=== PATIENT | female | born 1990 | race Hispanic/Latino ===

== ENCOUNTER 2017-07-08 20:40 | Emergency (ER) | payer MEDICAID, OTHER ==
[2017-07-08 21:08] LABS: #Basophils 0.1 thou/uL (0.0-0.2); #Eosinphils 0.1 thou/uL (0.0-0.7); #Lymphocytes 2.2 thou/uL (1.20-3.40); #Monocytes 0.5 thou/uL (0.11-0.59); #Neutrophils 3.9 thou/uL (1.40-6.50); %Basophils 1.4 % (0.0-1.0); %Eosinophils 1.7 % (0.0-10.0); %Lymphocytes 31.7 % (21.0-51.0); %Monocytes 7.9 % (0.0-10.0); Hematocrit 39.6 % (36.0-47.0); Mean Platelet Volume 8.8 fL (7.4-10.4); Red Blood Cell (RBC) Count 4.18 mill/uL (4.20-5.40); White Blood Cell (WBC) Count 6.9 thou/uL (4.8-10.8)
[2017-07-08 21:25] LABS: ALT (SGPT) 24 U/L (8-55); AST (SGOT) 22 U/L (5-34); Alkaline Phosphatase 74 U/L (40-150); Anion Gap 17 mmol/L (10-20); BUN (Urea Nitrogen) 13 mg/dL (7.0-18.7); Bilirubin, Total 0.2 mg/dL (0.2-1.2); Calc. Creatinine Clearance 0 mL/min (70-130); Calcium 9.6 mg/dL (7.8-10.44); Carbon Dioxide 22 mmol/L (22-29); Chloride 103 mmol/L (98-107); Estimated GFR-MDRD 86; Globulin 3.2 g/dL (2.4-3.5); Protein, Total 7.7 g/dL (6.0-8.3)
[2017-07-08] MEDS ORDERED: Lidocaine 1% w/Epinephrine 1:200K 30 ML VIAL ONE (22:31)
--- NOTE | 2017-07-08 22:44 | CT ---
CT HEAD NONCONTRAST 07/08/17 HISTORY: Seizure. COMPARISON: 08/15/14. FINDINGS: There is no evidence of acute intracranial hemorrhage or infarct. The ventricles appear normal in siz e, shape and position. There is no mass effect or shift of midline structures. The visualized paranas al sinuses remain well aerated. IMPRESSION: No acute intracranial abnormalities are demonstrated on noncontrast CT head. POS: [facility]
--- NOTE | 2017-07-08 22:45 | CT ---
CT FACE NONCONTRAST 07/08/17 HISTORY: Seizure. Facial injury. FINDINGS: The globes, mandible, and zygomatic arches are intact. The visualized paranasal sinuses remain well a erated. No displaced fractures are apparent. IMPRESSION: No acute osseous abnormalities are demonstrated. POS: [facility]
[2017-07-09] MEDS ORDERED: Bacitracin Zinc 1 Packet ONE (00:05)
[2017-07-09 00:17] LABS: Bilirubin Negative (Negative); Blood, Urine Negative (Negative); Glucose, Urine (Dipstick) Negative (Negative); Ketone, Urine Negative (Negative); Nitrite Negative (Negative); Protein, Urine (Dipstick) Negative (Neg-Trace)
== END 2017-07-09 00:45 | disposition home or self-care (01) ==
LOC: ERS 20:40
DX: S01.111A Laceration without foreign body of right eyelid and periocular area, initial encounter (principal); G40.909 Epilepsy, unspecified, not intractable, without status epilepticus; F41.9 Anxiety disorder, unspecified; F32.9 Major depressive disorder, single episode, unspecified; F90.9 Attention-deficit hyperactivity disorder, unspecified type; Z79.899 Other long term (current) drug therapy; W22.03XA Walked into furniture, initial encounter
CPT/HCPCS: 12011; 70450; 70486; 80053; 81003; 84146; 84703; 85025; 99406

== ENCOUNTER 2018-10-11 23:17 | Day surgery (SDC) | payer OTHER ==
[2018-10-12 00:04] VITALS: BMI 30.2
--- NOTE | 2018-10-12 00:19 | PDOC.LDHP ---
Labor and Delivery H&P Chief complaint: other (Here for BP check, twins) HPI: Patient of Dr Gonsalez Here for "high BP at [facility]", known twins 28 yo with nown twins, brought from [facility] for "BP check". States BP was high at [facility] but no VEGA, no visual changes, no RUQ pain, no CTXs, no LOF. Good FM X 2. States some vag pressure Review of Systems: complete ROS performed and as per HPI Current gestational age (weeks): 27 (5 days) Dating criteria: last menstrual period Grav: 4 Para: 3 Current complications: other (known twins) Abnormal US findings: No Current medications: pre- vitamins Previous surgical history: none Allergies/Adverse Reactions: Allergies Allergy/AdvReac Type Severity Reaction Status Date / Time No Known Allergies Allergy Verified 03/28/13 00:24 - Physical Exam Vital signs reviewed and normal: yes (120/80s here with one BP 136/94) General: NAD Heart: RRR FHT: category 1 (X2 (reactive for age)) [place] contractions every: none - Assessment Known twins here for BP check.Patient arrived from [facility]. EGA is 27 weeks - Plan Plan: observation in L&D (No evidence PIH at this time. We will keep with BP checks. I have ordered transvag cervical length check for twins and vag pressure. No evidence actice PTL at this time.)
--- NOTE | 2018-10-12 01:08 | PDOC.EVN ---
Event Note - Event Note Event Note: BPs have been 120s/80s while in L&D I was present for the cervical sono: length 3.98cm with no funneling noted OK for outpatient F/U FHTs X 2 wnl
--- NOTE | 2018-10-12 07:26 | ULT ---
LIMITED OBSTETRICAL ULTRASOUND FOR CERVICAL LENGTH: Comparison: None. FINDINGS: There is cervical length measurement of 3.98 cm. The fetus is vertex in location. IMPRESSION: Cervical length 3.98 cm. POS: [facility]
== END 2018-10-12 01:15 ==
LOC: L&D/OP 23:17
PROVIDERS: ATTEND Obstetrics & Gynecology
DX: O99.89 Other specified diseases and conditions complicating pregnancy, childbirth and the puerperium (principal); R03.0 Elevated blood-pressure reading, without diagnosis of hypertension; O30.002 Twin pregnancy, unspecified number of placenta and unspecified number of amniotic sacs, second trimester; Z3A.27 27 weeks gestation of pregnancy; Z79.899 Other long term (current) drug therapy
CPT/HCPCS: 76815; 99282

== ENCOUNTER 2018-11-10 16:57 | Day surgery (SDC) | payer OTHER ==
[2018-11-10 17:38] VITALS: BP 142/85; TEMP 98.5; BMI 31.4
--- NOTE | 2018-11-10 18:46 | PDOC.FPROB ---
FMR OB H&P: HPI - History of Present Illness Chief Complaint: Pelvic cramping/pressure Indentification: 28 year old at 31.6 wks History of Present Illness: 28 year old at 31.6 wks with twin gestation presents with a two day history of pelvic cramping/pressure. She states it is intermittent and is improved with tylenol. Patient was seen by Dr. Gonsalez yesterday in clinic. He did a cervical check at that time and she was reportedly 1.5 cm dilated. Patient reports that today she started to have clear discharge. She denies vaginal bleeding. Primary Care Physician: Dr. Gonsalez FMR OB H&P: Current - Care : 4 Para: 2103 Gestational age: 31.6 wks Due date: 01/06/2019 FMR OB H&P: History - Past Medical History PMH: H/O seizure disorder after of daughter. Patient was reportedly on medication prior to but has not been on medication during . She has not had any seizures. - OB History OB History: x3 PTD d/t IOL for oligohydramnios at 36 wks - Surgical History Sx History: Denies - Social History Social History: Denies alcohol, tobacco, or drug use FMR OB H&P: Medications - Current Home Medications: Medication Instructions Recorded Confirmed Type Vitamin 1 tab PO DAILY 03/28/13 11/10/18 History Allergies/Adverse Reactions: Allergies Allergy/AdvReac Type Severity Reaction Status Date / Time No Known Allergies Allergy Verified 03/28/13 00:24 FMR OB H&P: ROS - Review of Systems General: denies: fever/chills, weight/appetite/sleep changes Eyes: denies: vision changes, double vision, scotomas ENT: denies: nasal congestion, rhinorrhea, sore throat Cardiovascular: denies: chest pain, palpitation, edema Gastrointestinal: reports: cramping. denies: vomiting, diarrhea Genitourinary (Female): reports: polyuria, vaginal discharge, vaginal pressure. denies: dysuria, vaginal bleeding, contractions Musculoskeletal: denies: pain, stiffness Neurologic: denies: numbness, syncope, seizures, weakness Integumentary: denies: itching, rash, lesions Hematologic/Lymphatic: denies: prolonged or excessive bleeding Psychological: denies: depression, anxiety FMR OB H&P: Vital Signs - Maternal Vital signs: Vital Signs - First Documented Temp Pulse Resp BP Pulse Ox 98.5 F 110 H 20 142/85 H 98 11/10/18 17:36 11/10/18 17:36 11/10/18 17:36 11/10/18 17:36 11/10/18 17:36 - Heart Tones Baseline: 150 (A&B) Variability: moderate (A&B) Acceleration: present (A&B) Deceleration: absent Category: category 1 [place] contractions every: Irritability FMR OB H&P: Physical Exam - Physical Exam General: NAD, awake, alert and oriented HEENT: MMM, conjunctiva clear, grossly normal vision, grossly normal hearing Heart: RRR, no murmurs/rubs/gallops, pulses present, no edema General: CTAB, no respiratory distress Abdomen: soft, gravid, non-tender, bowel sound present Musculoskeletal: pulses present, FROM in all four extremities Neurological: no tremor, no focal deficit Skin: no rash, capillary refill <2 seconds Lymphatic: no unusual bruising or bleeding, no purpura Psychiatric: intact recent and remote memory, good judgement and insight, normal mood and affect - Pelvic Exam Vulva: normal hair distribution Cervix: no lesions, no blood Deviation from normal: Copious frothy thomas vaginal discharge SVE: 1./-3 Presentation: Presenting baby vertex FMR OB H&P: A/P - Problem List (1) Twin gestation in third trimester Status: Acute Code(s): O30.003 - TWIN PREG, UNSP NUM PLCNTA & AMNIO SACS, THIRD TRIMESTER (2) Vaginal discharge during Status: Acute Code(s): O26.899 - OTH RELATED CONDITIONS, UNSPECIFIED TRIMESTER; N89.8 - OTHER SPECIFIED NONINFLAMMATORY DISORDERS OF VAGINA Disposition: 28 year old at 31.6 wks with twin gestation presents with pelvic cramping/pressure 1. Twin gestation at 31.6 wks - Rule out labor - Uterine irritability with intermittent contractions on toco - FHT's for baby A&B 150's; Cat 1 strip - Sent fibronectin - UA pending - VP3, GC/CT pending - Cervical check ./-3 - Encourage PO hydration 2. Vaginal discharge - VP3, GC/CT pending 3. Elevated BP without diagnosis of HTN - 142/85 on admission, no elevated BP's since initial BP check - Patient had Pre-E workup done a few weeks ago which was normal Dispo: Pending results above. If fibronectin positive, then will get cervical length. Discussion: Date/Time: 11/10/18 0293 This H&P was discussed with Dr. Morataya who agrees with the above documentation and plan. Signature: Asmita Jacob, DO PGY-2 Addendum - Attending - Attending Attestation Date/Time: 11/12/18 1630 I personally evaluated the patient and discussed the management with Dr. Jacob I agree with the History, Examination, Assessment and Plan documented above with any addition or exceptions noted below. FFN neg, VP3 neg/neg/neg. Pt discharged home with reactive NST X2 and labor precautions.
[2018-11-10 19:06] LABS: Bilirubin Negative (Negative); Blood, Urine Large (Negative); Clarity CLOUDY (Clear); Glucose, Urine (Dipstick) Negative (Negative); Leukocyte Negative (Negative); Nitrite Negative (Negative); Protein, Urine (Dipstick) Negative (Neg-Trace); pH, Urine 7.5 (5.0-9.0)
[2018-11-10 19:08] LABS: Bacteria/HPF None Seen HPF (None Seen); RBC/HPF GREATER THAN 50-TNTC HPF (0-3); WBC/HPF 0-3 HPF (0-3)
[2018-11-10 19:09] LABS: Pathc Cast-AUWi Flag 2.99 (0-2.49)
[2018-11-10 19:22] LABS: FFN Internal QC Analyzer PASS (PASS); FFN Internal QC Cassette PASS (PASS); Fetal Fibronectin Negative (Negative)
[2018-11-10 19:34] LABS: Hyaline Casts/LPF 0-3 HYALINE CAST LPF (0-3 Hyaline)
--- NOTE | 2018-11-10 21:38 | PDOC.EVN ---
Event Note - Event Note Event Note: 11/10/2018 at 9:30 PM fibronectin negative. Uterine irritability improved. VP3 negative. GC/CT still pending. Will notify patient if positive results. Patient does not appear to be in PTL at this time. UA with blood but no evidence of infection. Advised patient to follow up with Dr. Gonsalez next week. Patient complaining of GERD prior to d/c. Advised patient to take tums and follow up with Dr. Gonsalez for further treatment if necessary. Return precautions provided to include leaking of fluid, regular and painful contractions, decreased movement. Patient states that she has follow up with Dr. Gonsalez next . Asmita Jacob, DO PGY-2
[2018-11-13 00:56] LABS: Chlamydia by PCR Not Detected (NotDetected); GC by PCR Not Detected (NotDetected)
== END 2018-11-10 21:04 | disposition home or self-care (01) ==
LOC: L&D/OP 16:57
PROVIDERS: ATTEND Obstetrics & Gynecology
DX: O26.893 Other specified pregnancy related conditions, third trimester (principal); N89.8 Other specified noninflammatory disorders of vagina; R03.0 Elevated blood-pressure reading, without diagnosis of hypertension; Z3A.31 31 weeks gestation of pregnancy
CPT/HCPCS: 51701; 81001; 82731; 87480; 87491; 87510; 87591; 87660; 99284; A4353

== ENCOUNTER 2018-11-18 17:07 | Inpatient (IN) | payer OTHER ==
--- NOTE | 2018-11-18 17:35 | PDOC.EVN ---
Event Note - Event Note Event Note: HPI: This is a 28 yo at 33.0 wks with twin gestation comes in for low back pain. She states the pain started this morning. Can't really describe it. STates she is not sure what cxns feel like bc she was induced. States she just wanted to be sure she is not in labor. No burning or blood with urination. Nothing specifc makes pain better or worse. VP3, FFN, GC/CT negative 11/10 She affirms movement, denies cxns, ROM, bleeding/discharge. Denies VEGA, visual changes, SOB. States she has had some swelling of the legs. History: OB hx: x3, induce at 36 wks for oligo PMH: hx of seizure disorder after daughter. Reports being on anti-epileptic medication before but not during. Denies recent seizures. PSH: neg Meds: PNV Soc Hx: denies smoking, alcohol, drugs REVIEW OF SYSTEMS: Gen: no fever, chills, or sweats Neuro: no numbness/tingling, no weakness, denies headache Eyes: no visual changes ENT: no hearing changes, no sore throat, no runny nose Resp: no cough, no SOB, no wheeze Card: denies chest pain, no palpitations GI: no N/V/D, no abdominal pain : no dysuria, no hematuria MSK: see hpi Heme: no easy bruising/bleeding Skin: no rash, no erythema PHYSICAL EXAMINATION: General: NAD, alert and oriented x3 HEENT: PERRLA, EOMI, normal sclera, oropharynx without erythema or exudate Neck: Supple. Full ROM. Heart/Cardiovascular System: RRR, Cap refill < 3 seconds, no rub, no murmur Lungs/Respiratory System: clear to auscultation bilaterally. No increased work of breathing. Room air. Abdomen/Gastro-Intestinal System: no abdominal tenderness, normal bowel sounds, Gravid Extremeties: Warm extremities. No cyanosis or edema. Neuro: No gross deficits appreciated. CN 2-12 grossly intact Psychiatry: Awake, Alert and cooperative with exam Skin/ Integumentory: No lesions, rashes, or ulcers Musculoskeletal: Full ROM A/P: This is a 28 yo at 33.0 wks # Labor r/o - had neg FFN 11/10 - will monitor and give PO fluids - vertex/vertex on last US, has appt with Dr. Gonsalez 11/20, missed last appt Addendum - Attending - Attending Attestation Date/Time: 11/18/182024 I personally evaluated the patient and discussed the management with Dr. Hackett. 33 week twins with UCs q 3 mins and SVE of 2/50/ vtx A. Will give steroids for FLM and begin Procardia. Dr. Gonsalez has been notified. I agree with the History, Examination, Assessment and Plan documented above.
[2018-11-18] MEDS ORDERED: Acetaminophen 325 MG TAB PO SCH (18:15)
[2018-11-18] MEDS ORDERED: Promethazine HCl 25 MG/ML VIAL IM PRN (18:37)
[2018-11-18] MEDS ORDERED: Lidocaine 1% (PF) 30 ML VIAL SC PRN (18:37)
[2018-11-18] MEDS ORDERED: NS / Oxytocin 40 units/1000ml 1,000 ML IV PRN (18:37)
[2018-11-18] MEDS ORDERED: Acetaminophen 500 MG TAB PO PRN (18:37)
[2018-11-18] MEDS ORDERED: Ondansetron PF 4 MG/2 ML Vial IVP PRN (18:37)
[2018-11-18 18:40] VITALS: BMI 31.4
[2018-11-18] MEDS ORDERED: Betamet Acet/Betamet Na Ph 30 MG/5 ML VIAL ONE (18:40)
[2018-11-18] MEDS ORDERED: NIFEdipine 10 MG CAP ONE (18:43)
[2018-11-18] MEDS ORDERED: Penicillin G Potassium 5 MILL.UNITS in Sodium Chloride 0.9% 100 ML IVPB SCH (18:45)
[2018-11-18] MEDS ORDERED: Betamet Acet/Betamet Na Ph 30 MG/5 ML VIAL IM SCH (18:45)
[2018-11-18 20:57] LABS: Clarity CLEAR (Clear)
[2018-11-18 20:58] LABS: Bilirubin Negative (Negative); Blood, Urine Negative (Negative); Glucose, Urine (Dipstick) Negative (Negative); Leukocyte Negative (Negative); Nitrite Negative (Negative); Protein, Urine (Dipstick) Negative (Neg-Trace); Specific Gravity, Urine 1.003 (1.002-1.036); Urobilinogen 0.2 mg/dL (0.2-1.0)
[2018-11-18 20:59] LABS: Bacteria/HPF None Seen HPF (None Seen); Hyaline Casts/LPF 0-3 HYALINE CAST LPF (0-3 Hyaline); Pathc Cast-AUWi Flag 0.13 (0-2.49); Squamous Epithelial 0-3 HPF (0-3); WBC/HPF 0-3 HPF (0-3)
[2018-11-18 21:01] LABS: Urine Culture Reflex No No
--- NOTE | 2018-11-18 22:00 | ULT ---
FOB ultrasound CLINICAL HISTORY: Evaluation of weight and presentation, twin gestation. FINDINGS: Live intrauterine twin gestation is demonstrated. motion is noted by the weigher bulker. Fetus A and demonstrates movement during the exam and is in a vertex lie. cardiac activity of f etus A is 143 bpm. Average gestational age by ultrasound is 34 weeks and estimated weight is 2212 g. JULIUS is measured at 12.7 cm. cardiac activity of fetus B is documented at 147 bpm, and fetus B is in a vertex lie. Average g estational age by ultrasound is 33 weeks and estimated weight is 2129 g. No evidence of placenta previa is visualized. IMPRESSION: Live intrauterine twin gestation, as above. As necessary, continued imaging follow-up may be obtained. Transcribed Date/Time: 11/18/2018 10:21 PM
[2018-11-18 22:07] LABS: Mean Corpuscular HGB CONC 32.9 g/dL (32.0-36.0); Mean Corpuscular Hemoglobin 28.2 pg (27.0-31.0); Mean Corpuscular Volume 85.9 fL (78.0-98.0); Mean Platelet Volume 9.7 fL (7.4-10.4); Platelet Count 194 thou/uL (130-400); White Blood Cell (WBC) Count 8.9 thou/uL (4.8-10.8)
[2018-11-18 22:56] LABS: Syphilis Antibody Nonreactive (Nonreactive); Syphilis Antibody Index 0.03 S/CO (<1.00 Non-Reactive)
[2018-11-19 00:40] LABS: Hep B Surf Ag Non-Reactive S/CO (NonReactive)
[2018-11-19] MEDS: NIFEdipine 10 MG CAP PO SCH ×4 (01:20→20:01)
[2018-11-19] MEDS: Penicillin G 2.5 MILL.units 2.5 MILL.UNITS in Premix Bag 1 BAG IVPB SCH ×4 (01:30→13:51)
[2018-11-19] MEDS ORDERED: Calcium Carbonate 500 MG ChewTAB PO SCH (10:15)
[2018-11-20] MEDS: NIFEdipine 10 MG CAP PO SCH ×2 (02:02→10:37)
--- NOTE | 2018-11-20 13:11 | PDOC.EVN ---
Event Note - Event Note Event Note: HPI 28 yo at 33.1 wks with monochorionic diamniotic twin gestation admitted for labor and betamethazone protocol. on previous admission, VP3, FFN, GC/CT negative 11/10 History: OB hx: x3, induce at 36 wks for oligo PMH: hx of seizure disorder after daughter. Reports being on anti-epileptic medication before but not during. Denies recent seizures. PSH: neg Meds: PNV Soc Hx: denies smoking, alcohol, drugs Allergies: NKDA Meds: PNVs REVIEW OF SYSTEMS: Gen: no fever, chills, or sweats Neuro: no numbness/tingling, no weakness, denies headache Eyes: no visual changes ENT: no hearing changes, no sore throat, no runny nose Resp: no cough, no SOB, no wheeze Card: denies chest pain, no palpitations GI: no N/V/D, no abdominal pain : no dysuria, no hematuria MSK: no issues noted Heme: no easy bruising/bleeding Skin: no rash, no erythema PHYSICAL EXAMINATION: General: NAD, alert and oriented x3 HEENT: PERRLA, EOMI, normal sclera, oropharynx without erythema or exudate Neck: Supple. Full ROM. Heart/Cardiovascular System: RRR, Cap refill < 3 seconds, no rub, no murmur Lungs/Respiratory System: clear to auscultation bilaterally. No increased work of breathing. Room air. Abdomen/Gastro-Intestinal System: no abdominal tenderness, normal bowel sounds, Gravid Pelvic Exam: NL external genitalia, engaged head, Cervix is 1cm/50%/-2, posterior, firm Extremeties: Warm extremities. No cyanosis or edema. Neuro: No gross deficits appreciated. CN 2-12 grossly intact Psychiatry: Awake, Alert and cooperative with exam Skin/ Integumentory: No lesions, rashes, or ulcers Musculoskeletal: Full ROM A/P: Assessment: 1. 28 yo at 33.0 wks 2. [place]/Di Twins 3. Labor/Contractions and admitted last night by Laborist team for labor and BMZ steroid course. 4. GBS prophylaxes was begun. 5. Vertex/Vertex Ultrasound Plan: 1. Continue Modified bedrest 2. Continue BMZ course 3. Possible DC to home tomorrow if PTL is stable and cervix has not changed
--- NOTE | 2018-11-20 13:14 | PDOC.EVN ---
Event Note - Event Note Event Note: HPI 28 yo at 33.2 wks with monochorionic diamniotic twin gestation admitted for labor and betamethazone protocol. on previous admission, VP3, FFN, GC/CT negative 11/10 REVIEW OF SYSTEMS: Gen: no fever, chills, or sweats Neuro: no numbness/tingling, no weakness, denies headache Eyes: no visual changes ENT: no hearing changes, no sore throat, no runny nose Resp: no cough, no SOB, no wheeze Card: denies chest pain, no palpitations GI: no N/V/D, no abdominal pain : no dysuria, no hematuria MSK: no issues noted Heme: no easy bruising/bleeding Skin: no rash, no erythema PHYSICAL EXAMINATION: General: NAD, alert and oriented x3 HEENT: PERRLA, EOMI, normal sclera, oropharynx without erythema or exudate Neck: Supple. Full ROM. Heart/Cardiovascular System: RRR, Cap refill < 3 seconds, no rub, no murmur Lungs/Respiratory System: clear to auscultation bilaterally. No increased work of breathing. Room air. Abdomen/Gastro-Intestinal System: no abdominal tenderness, normal bowel sounds, Gravid Pelvic Exam: NL external genitalia, engaged head, Cervix is 1cm/50%/-2, posterior, firm Extremeties: Warm extremities. No cyanosis or edema. Neuro: No gross deficits appreciated. CN 2-12 grossly intact Psychiatry: Awake, Alert and cooperative with exam Skin/ Integumentory: No lesions, rashes, or ulcers Musculoskeletal: Full ROM A/P: Assessment: 1. 28 yo at 33.2 wks 2. [place]/Di Twins 3. Labor/Contractions and admitted by Laborist team for labor and BMZ steroid course. 4. GBS prophylaxes now discontinued 5. Vertex/Vertex Ultrasound 6. Stable cervical exam and arrested labor Plan: 1. DC to home 2. clinic F/U this week 3. labor precautions
== END 2018-11-20 14:25 | disposition home health service (06) | DRG 833 ==
LOC: L&D/OP 17:07 → L&D 20:57
PROVIDERS: ADMIT Obstetrics & Gynecology; ATTEND Obstetrics & Gynecology
DX: O30.003 Twin pregnancy, unspecified number of placenta and unspecified number of amniotic sacs, third trimester (principal); Z3A.33 33 weeks gestation of pregnancy
CPT/HCPCS: 36415; 76810; 81001; 85027; 86780; 86850; 86870; 86900; 86901; 87077; 87081; 87340; 99285; J0702; J2540; J7050

== ENCOUNTER 2018-11-23 17:48 | Inpatient (IN) | payer OTHER ==
[2018-11-23 18:18] VITALS: BMI 32.0
[2018-11-23 18:46] LABS: #Eosinphils 0.1 thou/uL (0.0-0.7); #Lymphocytes 1.4 thou/uL (1.20-3.40); #Monocytes 0.7 thou/uL (0.11-0.59); #Neutrophils 5.9 thou/uL (1.40-6.50); %Basophils 0.4 % (0.0-1.0); %Eosinophils 1.4 % (0.0-10.0); %Lymphocytes 17.5 % (21.0-51.0); %Monocytes 8.9 % (0.0-10.0); %Neutrophils 71.8 % (42.0-75.0); Hemoglobin 9.9 g/dL (12.0-16.0); Mean Corpuscular HGB CONC 33.2 g/dL (32.0-36.0); Mean Corpuscular Hemoglobin 27.6 pg (27.0-31.0); Mean Corpuscular Volume 83.1 fL (78.0-98.0); Red Blood Cell (RBC) Count 3.58 mill/uL (4.20-5.40); White Blood Cell (WBC) Count 8.3 thou/uL (4.8-10.8)
[2018-11-23 19:03] LABS: Amphetamine Not Detected (NotDetected); Barbiturates Screen Not Detected (NotDetected); Benzodiazepine Screen Not Detected (NotDetected); Cocaine Metabolite Screen Not Detected (NotDetected); Medtox Reader # READER 1; Methadone Not Detected (NotDetected); Methamphetamine Not Detected (NotDetected); Opiate Screen Not Detected (NotDetected); Oxycodone Screen Not Detected (NotDetected); Phencyclidine (PCP) Not Detected (NotDetected); THC/Cannabinoid Screen Not Detected (NotDetected); Tricyclic Screen Not Detected (NotDetected)
[2018-11-23 19:04] LABS: ALT (SGPT) 10 U/L (8-55); AST (SGOT) 18 U/L (5-34); Albumin 3.5 g/dL (3.5-5.0); Alkaline Phosphatase 148 U/L (40-150); Anion Gap 16 mmol/L (10-20); Anisocytosis SLIGHT = 6-15 cells (100X) (0-5/hpf); BUN (Urea Nitrogen) 6 mg/dL (7.0-18.7); Bilirubin, Total 0.4 mg/dL (0.2-1.2); Calc. Creatinine Clearance 157 mL/min (70-130); Carbon Dioxide 22 mmol/L (22-29); Chloride 103 mmol/L (98-107); Estimated GFR-MDRD Greater than 90; Globulin 3.1 g/dL (2.4-3.5); Glucose 100 mg/dL (70-105); Large Platelets SLIGHT; MDiff Complete? YES; Mean Platelet Volume 9.6 fL (7.4-10.4); Medtox Control Line Valid? VALID (VALID); Platelet Count 179 thou/uL (130-400); Platelet Morphology Comment Appears Adequate; Poikilocytosis SLIGHT = 6-15 cells (100X) (0-5/hpf); Potassium 3.6 mmol/L (3.5-5.1); Protein, Total 6.6 g/dL (6.0-8.3); Sodium 137 mmol/L (136-145)
[2018-11-23 19:38] LABS: Creatinine, Urine 32.13 mg/dL (47-110); Protein, Urine Random Quant Less than 10 mg/dL (1-14)
[2018-11-23] MEDS ORDERED: Butorphanol Tartrate 1 MG/ML VIAL SLOW IVP PRN (19:53)
[2018-11-23] MEDS ORDERED: Ondansetron PF 4 MG/2 ML Vial IVP PRN (19:53)
[2018-11-23] MEDS ORDERED: Acetaminophen 500 MG TAB PO PRN (19:53)
[2018-11-23] MEDS ORDERED: Promethazine HCl 25 MG/ML VIAL IM PRN (19:53)
--- NOTE | 2018-11-23 19:59 | PDOC.LDHP ---
Labor and Delivery H&P Chief complaint: other (BP check) HPI: 28 y/o at 33w5d, patient of Dr. Gonsalez, sent from clinic for elevated BP in clinic. Denies any PIH sx. Having continued ctx, denies vb, LOF, or decreased FM. Was previously admitted last weekend for PTL. Received celestone x 2. ROS neg for HEENT, cv, pulm, gi, gu, neuro, psych, skin, musculoskeletal or constitutional symptoms other than mentioned above. OB History Details: 3 prior term SVDs Current complications: mono/di twins Past Medical History: None Current medications: pre-margarita vitamins Previous surgical history: none Allergies/Adverse Reactions: Allergies Allergy/AdvReac Type Severity Reaction Status Date / Time No Known Allergies Allergy Verified 11/23/18 18:20 Social history: none, other (Incarcerated this ) - Physical Exam Vital signs reviewed and normal: yes General: NAD, resting Lungs: nonlabored breathing Abdomen: gravid Extremeties: no edema FHT: category 1 (x2) [place] contractions every: q8 mins - Vaginal Exam cm dilated: 2 Effacement: 75% Station: -2 - OB Labs Urine drug screen: negative - Assessment 28 y/o at 33w5d with mono/di twins here for elevated BPs. All normal BPs with single severe range while here in triage. Labs wnl. status reassuring with reactive NST. SVE unchanged from office but having ctx. - Plan Plan: observation in L&D -: Discussed with Dr. Gonsalez. Obs for serial BPs. Continue to monitor while edwina. Dr. Gonsalez will assume care at this time.
[2018-11-24] MEDS ORDERED: Zolpidem Tartrate 5 MG TAB PO PRN (01:05)
[2018-11-24] MEDS: Lactated Ringer's 1,000 ML IV SCH ×2 (01:33→05:47)
[2018-11-24 03:10] VITALS: BP 135/78
[2018-11-24] MEDS ORDERED: Promethazine HCl 25 MG/ML VIAL IM PRN (04:37)
[2018-11-24] MEDS ORDERED: Lactated Ringer's 1,000 ML IV SCH (04:37)
[2018-11-24] MEDS ORDERED: Ondansetron PF 4 MG/2 ML Vial IVP PRN (04:37)
[2018-11-24] MEDS ORDERED: Calcium Gluc 4.6 MEQ/10 ML (100 MG/ML) IV PRN (04:39)
[2018-11-24] MEDS ORDERED: Magnesium Sulfate 20 gm/500 ml 20 GM/500 ML BAG IVPB PRN (04:39)
[2018-11-24] MEDS ORDERED: Magnesium Sulfate 20 gm/500 ml 4 GM/100 ML BAG IVPB ONE (04:39)
[2018-11-24] MEDS ORDERED: Labetalol HCl 100 MG/20 ML VIAL SLOW IVP PRN (04:40)
[2018-11-24] MEDS ORDERED: NS w/ Oxytocin 10 units 500 ML IV SCH ×2 (04:45)
[2018-11-24] MEDS ORDERED: Lidocaine 1% (PF) 30 ML VIAL SC PRN (04:45)
[2018-11-24] MEDS ORDERED: Penicillin G Potassium 2.5 MILL.UNITS in Sodium Chloride 0.9% 50 ML IVPB SCH (04:45)
[2018-11-24] MEDS ORDERED: NS w/ Oxytocin 10 units 500 ML IVPB SCH (04:45)
[2018-11-24] MEDS ORDERED: Penicillin G Potassium 5 MILL.UNITS in Sodium Chloride 0.9% 100 ML IVPB SCH (04:45)
[2018-11-24 05:59] LABS: Syphilis Antibody Nonreactive (Nonreactive); Syphilis Antibody Index 0.03 S/CO (<1.00 Non-Reactive)
[2018-11-24 06:00] LABS: HBSAg Index 0.23 S/CO (0-0.99); Hep B Surf Ag Non-Reactive S/CO (NonReactive)
[2018-11-24 06:06] LABS: Hemoglobin 9.7 g/dL (12.0-16.0); Mean Corpuscular HGB CONC 35.4 g/dL (32.0-36.0); Mean Corpuscular Hemoglobin 29.5 pg (27.0-31.0); Mean Corpuscular Volume 83.4 fL (78.0-98.0); Mean Platelet Volume 9.5 fL (7.4-10.4); Platelet Count 167 thou/uL (130-400); RBC Distribution Width 15.1 % (11.5-14.5); Red Blood Cell (RBC) Count 3.28 mill/uL (4.20-5.40); White Blood Cell (WBC) Count 7.4 thou/uL (4.8-10.8)
[2018-11-24] MEDS ORDERED: Penicillin G 2.5 MILL.units 2.5 MILL.UNITS in Premix Bag 1 BAG IVPB SCH (10:45)
--- NOTE | 2018-11-27 13:43 | DIS ---
DATE OF ADMISSION: 11/23/2018 DATE OF DISCHARGE: 11/24/2018 I am dictating this discharge summary because I was the patient's clinical OB/ [employer]. However, I did not yet personally see this patient during any part of her admission. She was admitted by Dr. Scales and then transferred to [facility] in [place], which was completed by Dr. Gregorio Thurston. ADMISSION DIAGNOSES: Intrauterine at 33 weeks and 5 days who was admitted for elevated blood pressures with initial single severe range blood pressure in triage, preeclampsia. Laboratory work was done and was within normal limits. Initial status was reassuring and reactive. Sterile vaginal exam was unchanged from the office visit, but the patient was having noted contractions. The patient's condition began to deteriorate into the evening and overnight, and it was decided that the patient had severe range gestational hypertension warranting immediate induction of labor. At that time, the patient was found to be in double vertex presentation for her twins, which had been checked during that week in clinic. The baby's heads remained in double vertex presentation for the last several months. Vaginal delivery was preferred by the patient and orders for Pitocin were given and she was started on Pitocin induction of labor. However, within several hours, shift change occurred and the plan for NICU maximum occupancy was reviewed, and it was decided that the NICU could not accommodate two premature twins at that time. An executive decision was made outside of my control to transfer these twins out of the hospital for delivery based solely on the need for NICU beds. The Transfer Center was contacted. I spoke directly with Chay Fields MD at [facility] where we reviewed this patient's case. He accepted transfer. I conveyed this information to Dr. Gregorio Thurston who then helped execute the transfer without any further difficulties or assistance from me. Transfer occurred on 11/24/2018 , by ground transportation. Job ID: [id number] [facility]
--- NOTE | 2018-12-07 05:09 | DIS ---
DATE OF ADMISSION: 11/23/2018 DATE OF DISCHARGE: 11/24/2018 This is regarding admission dated 11/23/2018. I was given a notification in the EMR that I was to dictate a discharge summary on this patient. However, on review of the medical record, it appears that only Dr. Gonsalez and Dr. Scales were involved in this patient's care. I do not seem to have cared for this patient myself. As I am not aware of direct patient contact with this patient, I am unable to dictate a discharge summary. For full details, please see the notes by Dr. Gonsalez and Dr. Scales. Again, as I did not have direct patient care with this patient, I am unable to provide a discharge summary. Job ID: [id number]
== END 2018-11-24 10:00 | disposition short-term general hospital (02) | DRG 833 ==
LOC: L&D/OP 17:48 → L&D 21:11 → OBSVTOIN 21:11
PROVIDERS: ADMIT Obstetrics & Gynecology; ATTEND Obstetrics & Gynecology
PROC: 3E033VJ Introduction of Other Hormone into Peripheral Vein, Percutaneous Approach (ICD-10-PCS; principal; 2018-11-24)
DX: O13.3 Gestational [pregnancy-induced] hypertension without significant proteinuria, third trimester (principal); O30.033 Twin pregnancy, monochorionic/diamniotic, third trimester; Z3A.33 33 weeks gestation of pregnancy
CPT/HCPCS: 36415; 51702; 59025; 76810; 80053; 80306; 81001; 82570; 84156; 85025; 85027; 86780; 86850; 86870; 86900; 86901; 87077; 87081; 87340; 99285; J0702; J2540; J2590; J3475; J3490; J7050

== ENCOUNTER 2024-08-19 18:07 | Emergency (ER) | payer OTHER | END 2024-08-19 18:55 | disposition home or self-care (01) | LOC: ERS 18:07 | DX: Z20.822 Contact with and (suspected) exposure to COVID-19 (principal); F17.290 Nicotine dependence, other tobacco product, uncomplicated | CPT/HCPCS: 99282 ==